=== PATIENT | female | born 1990 | race Caucasian/White ===

== ENCOUNTER 2019-02-05 10:53 | Emergency (ER) | payer OTHER ==
[~2019-02-05] VITALS: Ht 167.6 cm; Wt 59.1 kg
[2019-02-05 11:02] VITALS: BP 118/74; TEMP 98.1
[2019-02-05] MEDS ORDERED: AMOXICILLIN 8751 TAB PO (12:20)
[2019-02-05 12:28] VITALS: PULSE 75
== END 2019-02-05 12:28 | disposition home or self-care (01) ==
LOC: COL.ER 10:53
DX: S61.251A Open bite of left index finger without damage to nail, initial encounter (principal); S61.257A Open bite of left little finger without damage to nail, initial encounter; F41.9 Anxiety disorder, unspecified; F32.9 Major depressive disorder, single episode, unspecified; W54.0XXA Bitten by dog, initial encounter; Y92.838 Other recreation area as the place of occurrence of the external cause